=== PATIENT | male | born 1965 | race Asian ===

== ENCOUNTER 2022-02-25 22:43 | Inpatient (IN) | payer OTHER ==
[~2022-02-25] VITALS: Ht 177.8 cm; Wt 116.6 kg
[2022-02-25 22:50] VITALS: BP_SYST 111
[2022-02-25] MEDS ORDERED: NACL 0.9% 2,000 ML IV ONE (23:00)
[2022-02-25 23:59] LABS: HEMATOCRIT 39.2 % (36-54); MEAN CORPUSCULAR VOLUME 63 fL (79.0-98.0); PLATELET COUNT (AUTO) 58 K/uL (130-430); RED BLOOD CELL COUNT(AUTO) 6.18 MIL/uL (4.2-6.2); RED CELL DISTRIBUTION WIDTH 14.7 % (9.0-15.0); WHITE BLOOD COUNT (AUTO) 5.1 K/uL (4.8-10.8)
[2022-02-26] VITALS (7 sets, daily range): BP systolic 107–130
[2022-02-26] MEDS ORDERED: cefTRIAXone 1 GM in D5W 50 ML IV ONE (00:45)
[2022-02-26 00:49] LABS: ANION GAP 13 (5-15); CALCIUM 8.3 mg/dL (8.4-11.0); CHLORIDE 92 mmol/L (98-107); CREATININE 2.83 mg/dL (0.55-1.30); GFR AFRICAN AMERICAN 30 mL/min (>90); GLUCOSE 324 mg/dL (70-99); POTASSIUM 4.3 mmol/L (3.5-5.1); UREA NITROGEN, BLOOD 61 mg/dL (8-21)
[2022-02-26 00:58] LABS: ALANINE AMINOTRANSFERASE 39 U/L (12-78); ALBUMIN 1.9 g/dL (3.4-4.8); ASPARTATE AMINOTRANSFERASE 46 U/L (10-37); TOTAL BILIRUBIN 0.7 mg/dL (0.0-1.0)
[2022-02-26] MEDS ORDERED: NS 500 ML IV ONE (01:00)
[2022-02-26] MEDS ORDERED: ONDANSETRON HCL 4 MG/2 ML VIAL IVP PRN (01:45)
[2022-02-26] MEDS ORDERED: cefTRIAXone 1 GM VIAL ONE (01:53)
[2022-02-26 02:00] LABS: CKMB RELATIVE INDEX 0.2 (0.0-2.9); CREATINE KINASE MB 1.4 ng/mL (0-3.6)
[2022-02-26 02:40] LABS: BILIRUBIN,URINE NEGATIVE (NEGATIVE); BLOOD, URINE 3+ (NEGATIVE); CLARITY/URINE SL CLOUDY (CLEAR); COLOR,URINE YELLOW (YELLOW); GLUCOSE,URINE 1+ (NEGATIVE); KETONES,URINE NEGATIVE (NEGATIVE); LEUKOCYTE ESTERASE ,URINE 2+ (NEGATIVE); NITRITE, URINE NEGATIVE (NEGATIVE); PH,URINE 5.5 (5.0-8.0); PROTEIN URINE 2+ (NEGATIVE)
[2022-02-26 02:55] LABS: RBC,URINE 20-50 /HPF (0-3); WBC,URINE 50-80 /HPF (0-3)
[2022-02-26 02:56] LABS: BACTERIA,URINE MANY /HPF (None Seen)
[2022-02-26 02:57] LABS: FINE GRANULAR CASTS,URINE 0-10 /LPF (None Seen); MUCUS,URINE 1+ /LPF (None Seen)
[2022-02-26] MEDS ORDERED: AMLO5TAB4 PO (03:10)
[2022-02-26] MEDS ORDERED: GLIP2.5T3 PO (03:10)
[2022-02-26] MEDS: NACL 0.9% 1,000 ML IV SCH ×3 (03:30→21:23)
[2022-02-26 07:15] LABS: BAND % (MANUAL) 1 % (0-6); EOSINOPHILS % (MANUAL) 1 % (0-7); LYMPHOCYTES % (MANUAL) 5 % (20-46); MONOCYTES % (MANUAL) 6 % (0-11)
[2022-02-26 07:43] LABS: BASOPHILS % (MANUAL) 0 % (0-2)
[2022-02-26 07:43] LABS: BASOPHILS % (AUTO) 0.3 % (0.0-2.0); EOSINOPHILS % (AUTO) 0.2 % (0.0-4.0); HEMATOCRIT 35.8 % (36-54); LYMPHOCYTES # (AUTO) 0.4 K/uL (1.0-5.5); LYMPHOCYTES % (AUTO) 6.6 % (20.5-51.5); MEAN CORPUSCULAR VOLUME 63 fL (79.0-98.0); MONOCYTES # (AUTO) 0.7 K/uL (0.0-1.0); MONOCYTES % (AUTO) 10.2 % (1.7-9.3); NEUTROPHILS # (AUTO) 5.5 K/uL (1.8-7.7); NEUTROPHILS % (AUTO) 82.7 % (40.0-70.0); RED BLOOD CELL COUNT(AUTO) 5.68 MIL/uL (4.2-6.2); RED CELL DISTRIBUTION WIDTH 14.7 % (9.0-15.0); WHITE BLOOD COUNT (AUTO) 6.6 K/uL (4.8-10.8)
[2022-02-26 07:50] LABS: PLATELET COUNT (AUTO) 47 K/uL (130-430)
[2022-02-26 08:00] LABS: CALCIUM 7.7 mg/dL (8.4-11.0); CREATININE 2.34 mg/dL (0.55-1.30); POTASSIUM 3.9 mmol/L (3.5-5.1)
[2022-02-26 08:06] LABS: ALBUMIN 1.6 g/dL (3.4-4.8); TOTAL BILIRUBIN 0.5 mg/dL (0.0-1.0)
[2022-02-26] MEDS ORDERED: INSULIN REGULAR, HUMAN 100 UNITS/ML, 10 ML VIAL SUBCUT SCH (11:30)
[2022-02-26] MEDS: INSULIN REGULAR, HUMAN 100 UNITS/ML, 10 ML VIAL (humuLIN R) SUBCUT PRN ×3 (11:53→21:25)
[2022-02-26] MEDS ORDERED: TOBRAMYCIN SULFATE 100 MG in NS 50 ML IV ONE (13:00)
[2022-02-26 17:11] LABS: BILIRUBIN,URINE NEGATIVE (NEGATIVE); BLOOD, URINE 3+ (NEGATIVE); CLARITY/URINE SL CLOUDY (CLEAR); COLOR,URINE YELLOW (YELLOW); GLUCOSE,URINE 3+ (NEGATIVE); KETONES,URINE NEGATIVE (NEGATIVE); LEUKOCYTE ESTERASE ,URINE 1+ (NEGATIVE); NITRITE, URINE NEGATIVE (NEGATIVE); PROTEIN URINE 2+ (NEGATIVE)
[2022-02-26 18:09] LABS: RBC,URINE 20-50 /HPF (0-3); WBC,URINE >100 /HPF (0-3)
[2022-02-26 18:10] LABS: BACTERIA,URINE MODERATE /HPF (None Seen); MUCUS,URINE None Seen /LPF (None Seen)
[2022-02-26] MEDS ORDERED: cefTRIAXone 1 GM VIAL IV SCH (21:00)
[2022-02-26] MEDS: cefTRIAXone 1 GM IVPB PREMIX 50 ML IV SCH (21:23)
[2022-02-26] MEDS: PHENAZOPYRIDINE HCL 100 MG TABLET PO PRN (22:45)
[2022-02-26] MEDS ORDERED: PHENAZOPYRIDINE HCL 100 MG TABLET ONE (22:48)
[2022-02-27] VITALS: BP_SYST 119
[2022-02-27] MEDS: ACETAMINOPHEN 500 MG TABLET PO PRN (03:32)
[2022-02-27 06:35] LABS: CALCIUM 7.9 mg/dL (8.4-11.0); CREATININE 1.67 mg/dL (0.55-1.30); POTASSIUM 3.9 mmol/L (3.5-5.1)
[2022-02-27] MEDS: INSULIN REGULAR, HUMAN 100 UNITS/ML, 10 ML VIAL (humuLIN R) SUBCUT PRN ×4 (06:36→20:33)
[2022-02-27 07:00] VITALS: BP_SYST 112
[2022-02-27 08:00] VITALS: BP_SYST 112
[2022-02-27] MEDS: PHENAZOPYRIDINE HCL 100 MG TABLET PO PRN ×2 (08:42→17:21)
[2022-02-27] MEDS: NACL 0.9% 1,000 ML IV SCH ×2 (08:47→20:32)
[2022-02-27] MEDS: amLODIPine BESYLATE 5 MG TABLET PO SCH (09:10)
[2022-02-27] MEDS: glipiZIDE XL 2.5 MG/TAB (GLUCOTROL XL) PO SCH (09:10)
[2022-02-27] MEDS: INSULIN GLARGINE 100 UNITS/ML 10 ML VIAL SUBCUT SCH ×2 (09:18→20:33)
[2022-02-27 09:49] LABS: TOTAL IRON BIND. CAPACITY 125 ug/dL (250-450)
[2022-02-27 12:08] VITALS: BP_SYST 127
[2022-02-27 16:10] VITALS: BP_SYST 114
[2022-02-27 20:00] VITALS: BP_SYST 115
[2022-02-27] MEDS ORDERED: IPRATROPIUM/ALBUTEROL SULFATE 3 ML AMPUL.NEB (DUONEB) INH PRN (20:15)
[2022-02-27] MEDS ORDERED: IPRATROPIUM/ALBUTEROL SULFATE 3 ML AMPUL.NEB (DUONEB) INH ONE (20:30)
[2022-02-27] MEDS: cefTRIAXone 1 GM IVPB PREMIX 50 ML IV SCH (20:31)
[2022-02-27 22:27] LABS: URINE SODIUM, RANDOM 27 mmol/L (40-220)
[2022-02-28] VITALS: BP_SYST 119
[2022-02-28 00:10] VITALS: BP_SYST 114
[2022-02-28] MEDS: INSULIN REGULAR, HUMAN 100 UNITS/ML, 10 ML VIAL (humuLIN R) SUBCUT PRN ×4 (05:57→21:36)
[2022-02-28] MEDS: PHENAZOPYRIDINE HCL 100 MG TABLET PO PRN ×2 (05:57→21:31)
[2022-02-28 06:59] LABS: BASOPHILS % (AUTO) 0.5 % (0.0-2.0); EOSINOPHILS % (AUTO) 0.1 % (0.0-4.0); HEMATOCRIT 37.5 % (36-54); LYMPHOCYTES # (AUTO) 0.6 K/uL (1.0-5.5); LYMPHOCYTES % (AUTO) 6.5 % (20.5-51.5); MEAN CORPUSCULAR VOLUME 63 fL (79.0-98.0); MONOCYTES # (AUTO) 0.7 K/uL (0.0-1.0); MONOCYTES % (AUTO) 7.6 % (1.7-9.3); NEUTROPHILS # (AUTO) 7.3 K/uL (1.8-7.7); NEUTROPHILS % (AUTO) 85.3 % (40.0-70.0); PLATELET COUNT (AUTO) 112 K/uL (130-430); RED BLOOD CELL COUNT(AUTO) 5.91 MIL/uL (4.2-6.2); RED CELL DISTRIBUTION WIDTH 15.4 % (9.0-15.0); WHITE BLOOD COUNT (AUTO) 8.5 K/uL (4.8-10.8)
[2022-02-28 07:39] LABS: CREATININE 1.38 mg/dL (0.55-1.30); PHOSPHORUS 2.5 mg/dL (2.7-4.5); POTASSIUM 3.8 mmol/L (3.5-5.1)
[2022-02-28 08:00] VITALS: BP_SYST 130
[2022-02-28] MEDS: IPRATROPIUM/ALBUTEROL SULFATE 3 ML AMPUL.NEB (DUONEB) INH SCH ×3 (08:09→19:32)
[2022-02-28 09:06] LABS: FOLATE (FOLIC ACID) >20.0 ng/mL (>3.0)
[2022-02-28 09:25] LABS: CKMB RELATIVE INDEX 0.1 (0.0-2.9); CREATINE KINASE MB 1.6 ng/mL (0-3.6)
[2022-02-28 09:42] LABS: INR 1.1 (0.80-1.20)
[2022-02-28] MEDS: amLODIPine BESYLATE 5 MG TABLET PO SCH (10:32)
[2022-02-28] MEDS: glipiZIDE XL 2.5 MG/TAB (GLUCOTROL XL) PO SCH (10:33)
[2022-02-28] MEDS: INSULIN GLARGINE 100 UNITS/ML 10 ML VIAL SUBCUT SCH ×2 (10:39→21:35)
[2022-02-28] MEDS: ACETAMINOPHEN 500 MG TABLET PO PRN (16:09)
[2022-02-28 20:00] VITALS: BP_SYST 133
[2022-02-28] MEDS: cefTRIAXone 1 GM IVPB PREMIX 50 ML IV SCH (21:29)
[2022-02-28] MEDS: NACL 0.9% 1,000 ML IV SCH (21:30)
[2022-03-01] VITALS: BP_SYST 127
[2022-03-01] MEDS: IPRATROPIUM/ALBUTEROL SULFATE 3 ML AMPUL.NEB (DUONEB) INH SCH ×4 (01:26→22:46)
[2022-03-01] MEDS: NACL 0.9% 1,000 ML IV SCH ×2 (03:12→18:06)
[2022-03-01 07:00] VITALS: BP_SYST 131
[2022-03-01 08:14] LABS: ALBUMIN 1.5 g/dL (3.4-4.8); CALCIUM 8.3 mg/dL (8.4-11.0); CREATININE 1.25 mg/dL (0.55-1.30); POTASSIUM 3.5 mmol/L (3.5-5.1); TOTAL BILIRUBIN 0.6 mg/dL (0.0-1.0)
[2022-03-01] MEDS: glipiZIDE XL 2.5 MG/TAB (GLUCOTROL XL) PO SCH (09:29)
[2022-03-01] MEDS: amLODIPine BESYLATE 5 MG TABLET PO SCH (09:30)
[2022-03-01] MEDS: INSULIN GLARGINE 100 UNITS/ML 10 ML VIAL SUBCUT SCH ×2 (09:42→21:30)
[2022-03-01] MEDS: INSULIN REGULAR, HUMAN 100 UNITS/ML, 10 ML VIAL (humuLIN R) SUBCUT PRN ×3 (13:19→21:31)
[2022-03-01 15:29] LABS: FERRITIN 1724 ng/mL (30-400)
[2022-03-01] MEDS ORDERED: PHENAZOPYRIDINE HCL 100 MG TABLET PO PRN (15:45)
[2022-03-01 19:00] VITALS: BP_SYST 148
[2022-03-01] MEDS ORDERED: cefTRIAXone 1 GM VIAL ONE (20:50)
[2022-03-02] MEDS: IPRATROPIUM/ALBUTEROL SULFATE 3 ML AMPUL.NEB (DUONEB) INH SCH ×4 (03:48→21:08)
[2022-03-02 06:17] LABS: BASOPHILS % (AUTO) 0.3 % (0.0-2.0); EOSINOPHILS % (AUTO) 0.1 % (0.0-4.0); HEMATOCRIT 35.8 % (36-54); LYMPHOCYTES % (AUTO) 9.7 % (20.5-51.5); MEAN CORPUSCULAR VOLUME 63 fL (79.0-98.0); MONOCYTES # (AUTO) 0.6 K/uL (0.0-1.0); MONOCYTES % (AUTO) 6.1 % (1.7-9.3); NEUTROPHILS # (AUTO) 8.9 K/uL (1.8-7.7); NEUTROPHILS % (AUTO) 83.8 % (40.0-70.0); PLATELET COUNT (AUTO) 237 K/uL (130-430); RED BLOOD CELL COUNT(AUTO) 5.68 MIL/uL (4.2-6.2); RED CELL DISTRIBUTION WIDTH 14.9 % (9.0-15.0); WHITE BLOOD COUNT (AUTO) 10.6 K/uL (4.8-10.8)
[2022-03-02] MEDS: NACL 0.9% 1,000 ML IV SCH ×2 (06:35→18:05)
[2022-03-02 07:00] LABS: ALBUMIN 1.5 g/dL (3.4-4.8); CALCIUM 8.2 mg/dL (8.4-11.0); CREATININE 1.11 mg/dL (0.55-1.30); FREE T4 (FREE THYROXINE) 1.4 ng/dl (0.8-1.5); PHOSPHORUS 3.7 mg/dL (2.7-4.5); POTASSIUM 3.3 mmol/L (3.5-5.1); THYROID STIMULATING HORMONE 0.86 uIu/mL (0.36-3.74); TOTAL BILIRUBIN 0.5 mg/dL (0.0-1.0)
[2022-03-02 08:00] VITALS: BP_SYST 143
[2022-03-02 08:25] VITALS: BP_SYST 143
[2022-03-02] MEDS: amLODIPine BESYLATE 5 MG TABLET PO SCH (09:08)
[2022-03-02] MEDS: glipiZIDE XL 2.5 MG/TAB (GLUCOTROL XL) PO SCH (09:08)
[2022-03-02] MEDS: INSULIN GLARGINE 100 UNITS/ML 10 ML VIAL SUBCUT SCH ×2 (09:11→21:29)
[2022-03-02] MEDS: INSULIN REGULAR, HUMAN 100 UNITS/ML, 10 ML VIAL (humuLIN R) SUBCUT PRN ×3 (11:54→21:28)
[2022-03-02] MEDS ORDERED: POTASSIUM CHLORIDE 20 MEQ TAB.PRT.SR PO ONE (13:45)
[2022-03-02 20:00] VITALS: BP_SYST 157
[2022-03-03] VITALS: BP_SYST 140
[2022-03-03] MEDS: IPRATROPIUM/ALBUTEROL SULFATE 3 ML AMPUL.NEB (DUONEB) INH SCH ×4 (00:42→19:00)
[2022-03-03 07:28] LABS: BASOPHILS % (AUTO) 0.3 % (0.0-2.0); EOSINOPHILS % (AUTO) 0.1 % (0.0-4.0); HEMATOCRIT 34.7 % (36-54); LYMPHOCYTES # (AUTO) 0.7 K/uL (1.0-5.5); LYMPHOCYTES % (AUTO) 7.6 % (20.5-51.5); MEAN CORPUSCULAR VOLUME 63 fL (79.0-98.0); MONOCYTES # (AUTO) 0.6 K/uL (0.0-1.0); NEUTROPHILS # (AUTO) 8.1 K/uL (1.8-7.7); PLATELET COUNT (AUTO) 264 K/uL (130-430); RED BLOOD CELL COUNT(AUTO) 5.54 MIL/uL (4.2-6.2); RED CELL DISTRIBUTION WIDTH 14.9 % (9.0-15.0); WHITE BLOOD COUNT (AUTO) 9.4 K/uL (4.8-10.8)
[2022-03-03 08:00] VITALS: BP_SYST 155
[2022-03-03 08:03] LABS: CALCIUM 8.1 mg/dL (8.4-11.0); CREATININE 1.01 mg/dL (0.55-1.30); POTASSIUM 3.3 mmol/L (3.5-5.1)
[2022-03-03] MEDS: INSULIN GLARGINE 100 UNITS/ML 10 ML VIAL SUBCUT SCH (08:39)
[2022-03-03] MEDS: amLODIPine BESYLATE 5 MG TABLET PO SCH (09:15)
[2022-03-03] MEDS: NACL 0.9% 1,000 ML IV SCH (09:16)
[2022-03-03] MEDS: glipiZIDE XL 2.5 MG/TAB (GLUCOTROL XL) PO SCH (09:16)
[2022-03-03 11:30] VITALS: BP_SYST 159
[2022-03-03] MEDS: INSULIN REGULAR, HUMAN 100 UNITS/ML, 10 ML VIAL (humuLIN R) SUBCUT PRN ×2 (11:52→18:45)
[2022-03-03 16:46] VITALS: BP_SYST 149
[2022-03-03] MEDS ORDERED: POTASSIUM CHLORIDE 20 MEQ TAB.PRT.SR PO ONE (19:30)
[2022-03-03] MEDS ORDERED: POTASSIUM CHLORIDE 10 MEQ TAB.PRT.SR ONE (19:37)
[2022-03-03 20:09] VITALS: BP_SYST 98
[2022-03-03] MEDS ORDERED: LEVO250T73 PO (20:18)
== END 2022-03-03 21:30 | disposition home or self-care (01) | DRG 871 ==
LOC: SED 22:43 → STU 02-26 01:53 → SMU 03-03 00:28
PROVIDERS: ADMIT Family Medicine; ATTEND Family Medicine
DX: A41.50 Gram-negative sepsis, unspecified (principal); D65 Disseminated intravascular coagulation [defibrination syndrome]; J96.00 Acute respiratory failure, unspecified whether with hypoxia or hypercapnia; N39.0 Urinary tract infection, site not specified; N17.9 Acute kidney failure, unspecified; E87.1 Hypo-osmolality and hyponatremia; N10 Acute pyelonephritis; E66.01 Morbid (severe) obesity due to excess calories; D73.1 Hypersplenism; I12.9 Hypertensive chronic kidney disease with stage 1 through stage 4 chronic kidney disease, or unspecified chronic kidney disease; E11.22 Type 2 diabetes mellitus with diabetic chronic kidney disease; N18.9 Chronic kidney disease, unspecified; K76.0 Fatty (change of) liver, not elsewhere classified; E83.39 Other disorders of phosphorus metabolism; E87.6 Hypokalemia; Z20.822 Contact with and (suspected) exposure to COVID-19; N40.0 Benign prostatic hyperplasia without lower urinary tract symptoms; K82.4 Cholesterolosis of gallbladder; Z68.36 Body mass index [BMI] 36.0-36.9, adult; Z83.3 Family history of diabetes mellitus; Z82.49 Family history of ischemic heart disease and other diseases of the circulatory system
CPT/HCPCS: 36415; 36600; 71045; 76700-TC; 76770; 78579; 78580-TC; 80048; 80053; 80061; 81000; 82043; 82272; 82550; 82553; 82570; 82607; 82728; 82746; 82803-TC; 82962; 83036; 83540; 83550; 83605; 83735; 83880; 84100; 84302; 84439; 84443; 84479; 84484; 85007; 85025; 85027; 85044; 85379; 85384; 85610-TC; 85730-TC; 87040; 87086; 93005; 94640; 94760; 96361; 96365; 99291; 99292; A9539; A9540; G0378; J0696; J1815; J3260; J7060